=== PATIENT | male | born 1965 | race Caucasian/White ===

== ENCOUNTER → 2017-01-09 | Outpatient (CLI) | payer OTHER | LOC: CIMAGING 10:02 | PROVIDERS: ATTEND Family Medicine | DX: J40 Bronchitis, not specified as acute or chronic (principal) | CPT/HCPCS: 71020-PO ==

== ENCOUNTER → 2017-05-07 | Outpatient (CLI) | payer OTHER | LOC: CIMAGING 14:56 | PROVIDERS: ATTEND Family Medicine | DX: M79.645 Pain in left finger(s) (principal); M79.644 Pain in right finger(s) | CPT/HCPCS: 73140-PO ==

== ENCOUNTER 2017-07-06 10:05 | Emergency (ER) | payer OTHER | END 2017-07-06 10:10 | disposition left against medical advice (07) | LOC: CED 10:05 | DX: Z53.21 Procedure and treatment not carried out due to patient leaving prior to being seen by health care provider (principal) ==